=== PATIENT | female | born 1965 | race Caucasian/White ===

== ENCOUNTER → 2017-04-23 | Outpatient (CLI) | payer MEDICAID ==
[~2017-04-23] MED LIST: ALPR-475 PO; BUPR8TAB; BUTA1CAP58 PO; HYDR4TAB48 PO; IBUP-1223 PO; IBUP1TAB76 PO; LEVO125T PO; LORA-446; METH-356 PO; METH750T2 PO; OMNIPAQUE 350 MG/ML, 100ML BOTTLE ONE; PRED10TA PO
== END | disposition home or self-care (01) ==
LOC: CFH 07:54
PROVIDERS: ATTEND Internal Medicine
DX: R10.2 Pelvic and perineal pain (principal); R32 Unspecified urinary incontinence; M51.87 Other intervertebral disc disorders, lumbosacral region
CPT/HCPCS: 72193; Q9967

== ENCOUNTER 2017-09-23 11:28 | Emergency (ER) | payer MEDICAID ==
[~2017-09-23] VITALS: Ht 160 cm; Wt 118.0 kg
[~2017-09-23 11:28] MED LIST changes: -OMNIPAQUE 350 MG/ML, 100ML BOTTLE ONE
[2017-09-23] MEDS ORDERED: SODIUM CHLORIDE FLUSH 10ML SYR IVF ONE ×2 (12:00→13:00)
[2017-09-23 12:40] LABS: BASOPHILS # (AUTO) 0.02 x10^3/uL (0-0.1); BASOPHILS % (AUTO) 0 % (0-1); EOSINOPHILS # (AUTO) 0.08 x10^3/uL (0-0.4); EOSINOPHILS % (AUTO) 1 % (1-7); LYMPHOCYTES # (AUTO) 1.87 x10^3/uL (1-3.4); LYMPHOCYTES % (AUTO) 26 % (22-44); MD NO; MEAN CORPUSCULAR HEMOGLOBIN 30.3 pg (27.0-34.8); MEAN CORPUSCULAR HGB CONC 33.9 g/dL (32.4-35.8); MEAN CORPUSCULAR VOLUME 89.3 fL (80-100); MEAN PLATELET VOLUME 8.1 fL (7.4-10.4); MONOCYTES % (AUTO) 8 % (2-9); NEUTROPHILS # (AUTO) 4.64 x10^3/uL (1.8-6.8); NEUTROPHILS % (AUTO) 64 % (42-75); PLATELET COUNT 278 x10^3/uL (130-400); RED BLOOD COUNT 4.83 x10^6/uL (3.82-5.3); RED CELL DISTRIBUTION WIDTH 13.1 % (9.6-15.2)
[2017-09-23 12:51] LABS: ALANINE AMINOTRANSFERASE 37 U/L (12-78); ALBUMIN 3.4 g/dL (3.4-5.0); ANION GAP 7 mmol/L (5-15); CALCIUM 8.9 mg/dL (8.5-10.1); CHLORIDE 109 mmol/L (98-107); CREATININE 0.84 mg/dL (0.55-1.02)
[2017-09-23 12:53] LABS: ALKALINE PHOSPHATASE 86 U/L (45-117); BILIRUBIN,TOTAL 0.4 mg/dL (0.2-1.0); TOTAL PROTEIN 7.6 g/dL (6.4-8.2)
[2017-09-23] MEDS ORDERED: HYDROmorphone 1 MG/ML, 1ML IVPush PRN (13:00)
[2017-09-23] MEDS ORDERED: ONDANSETRON ODT 4 MG PO ONE (13:00)
[2017-09-23] MEDS ORDERED: HYDROmorphone 1 MG/ML, 1ML ONE (13:05)
[2017-09-23] MEDS ORDERED: ONDANSETRON ODT 4 MG ONE (13:05)
[2017-09-23] MEDS ORDERED: KETOROLAC 30 MG/1 ML ONE (13:17)
[2017-09-23] MEDS ORDERED: DIPHENHYDRAMINE 50 MG/ML, 1ML ONE (13:17)
[2017-09-23] MEDS ORDERED: DIPHENHYDRAMINE 50 MG/ML, 1ML IVPush ONE (13:30)
[2017-09-23] MEDS ORDERED: KETOROLAC 30 MG/1 ML IVPush ONE (13:30)
[2017-09-23 14:30] VITALS: BP 141/93
[2017-09-23] MEDS ORDERED: DIAZEPAM 5 MG/ML, 2ML IV ONE (14:30)
== END 2017-09-23 15:21 | disposition home or self-care (01) ==
LOC: ED 15:21
DX: G44.209 Tension-type headache, unspecified, not intractable (principal); G43.909 Migraine, unspecified, not intractable, without status migrainosus; M19.90 Unspecified osteoarthritis, unspecified site; G89.29 Other chronic pain
CPT/HCPCS: 36415; 70450; 80053; 82550; 85025; 93005; 96374; 96375; 99285; J1200; J1885; J3360; Q0162

== ENCOUNTER 2017-11-24 19:25 | Emergency (ER) | payer MEDICAID ==
[~2017-11-24] VITALS: Ht 160 cm; Wt 116.4 kg
[2017-11-24 21:36] VITALS: BP 178/100
== END 2017-11-24 21:56 | disposition home or self-care (01) ==
LOC: ED 21:50
DX: J20.9 Acute bronchitis, unspecified (principal); G43.909 Migraine, unspecified, not intractable, without status migrainosus; G89.29 Other chronic pain; E03.9 Hypothyroidism, unspecified
CPT/HCPCS: 71046; 99284

== ENCOUNTER 2018-01-16 11:51 | Inpatient (IN) | payer MEDICAID, OTHER ==
[~2018-01-16] VITALS: Ht 160 cm; Wt 111.0 kg
[2018-01-16] MEDS ORDERED: SODIUM CHLORIDE 0.9% 1,000ML IVBOLUS ONE ×2 (12:00→15:30)
[2018-01-16] MEDS ORDERED: SODIUM CHLORIDE FLUSH 10ML SYR IVF ONE (12:00)
[2018-01-16 12:22] LABS: MEAN CORPUSCULAR HEMOGLOBIN 28.6 pg (27.0-34.8); MEAN CORPUSCULAR HGB CONC 33.4 g/dL (32.4-35.8); MEAN CORPUSCULAR VOLUME 85.6 fL (80-100); MEAN PLATELET VOLUME 8.6 fL (7.4-10.4); PLATELET COUNT 239 x10^3/uL (130-400); RED BLOOD COUNT 4.97 x10^6/uL (3.82-5.3); RED CELL DISTRIBUTION WIDTH 13.2 % (9.6-15.2)
[2018-01-16] MEDS ORDERED: KETOROLAC 30 MG/1 ML ONE (12:26)
[2018-01-16] MEDS ORDERED: PROMETHAZINE 25 MG/ML, 1ML ONE (12:26)
[2018-01-16] MEDS ORDERED: PROMETHAZINE 25 MG/ML, 1ML IM ONE (12:30)
[2018-01-16] MEDS ORDERED: KETOROLAC 30 MG/1 ML IVPush ONE (12:30)
[2018-01-16 12:34] LABS: INTERNATIONAL NORMALIZED RATIO 1.16 (0.93-1.1); PROTHROMBIN TIME 11.9 Seconds (9.6-11.5)
[2018-01-16 12:38] LABS: ALANINE AMINOTRANSFERASE 22 U/L (12-78); ALBUMIN 3.2 g/dL (3.4-5.0); ANION GAP 9 mmol/L (5-15); CALCIUM 8.6 mg/dL (8.5-10.1); CHLORIDE 100 mmol/L (98-107); CREATININE 0.84 mg/dL (0.55-1.02)
[2018-01-16 12:39] LABS: BASOPHILS # (AUTO) 0.05 x10^3/uL (0-0.1); BASOPHILS % (AUTO) 0 % (0-1); EOSINOPHILS % (AUTO) 0 % (1-7); LYMPHOCYTES # (AUTO) 0.78 x10^3/uL (1-3.4); LYMPHOCYTES % (AUTO) 4 % (22-44); MD SCAN; MONOCYTES # (AUTO) 0.72 x10^3/uL (0.2-0.8); MONOCYTES % (AUTO) 3 % (2-9); NEUTROPHILS # (AUTO) 19.51 x10^3/uL (1.8-6.8); NEUTROPHILS % (AUTO) 93 % (42-75)
[2018-01-16 12:42] LABS: HCT (SEDRATE) 42.5 % (34.6-47.8)
[2018-01-16 12:45] LABS: ALKALINE PHOSPHATASE 90 U/L (45-117); BILIRUBIN,TOTAL 0.6 mg/dL (0.2-1.0); TOTAL PROTEIN 7.6 g/dL (6.4-8.2)
[2018-01-16] MEDS ORDERED: CEFTRIAXONE PMX 2GM/50ML 50 ML ONE (13:27)
[2018-01-16] MEDS ORDERED: CEFTRIAXONE 2 GM in SODIUM CHLORIDE 0.9% 50 ML IV ONE (13:30)
[2018-01-16] MEDS ORDERED: AZITHROMYCIN 500 MG in SODIUM CHLORIDE 0.9% 250 ML IV ONE (13:30)
[2018-01-16 13:57] LABS: MICROSCOPIC INDICATED
[2018-01-16 14:26] LABS: CULTURE INDICATED? NO
[2018-01-16] MEDS ORDERED: GADOBUTROL 10 MMOL/10 ML PFS ONE (14:43)
[2018-01-16] MEDS ORDERED: SODIUM CHLORIDE 0.9% 1,000 ML IV SCH (15:30)
[2018-01-16] MEDS ORDERED: NS + 20MEQ KCL 1,000 ML IV SCH (16:08)
[2018-01-16] MEDS ORDERED: DOCUSATE 100 MG CAPSULE PO PRN (16:30)
[2018-01-16] MEDS ORDERED: POTASSIUM CHLORIDE 40 MEQ in SODIUM CHLORIDE 0.9% 500 ML IV ONE (16:30)
[2018-01-16] MEDS ORDERED: POLYETHYLENE GLYCOL 17 GM PACKET PO PRN (16:30)
[2018-01-16] MEDS ORDERED: GUAIFENESIN/DM 200-20MG, 10ML UDC PO PRN (16:30)
[2018-01-16] MEDS ORDERED: hydrALAzine 20 MG/ML, 1ML IVPush PRN (16:30)
[2018-01-16] MEDS ORDERED: BISACODYL 10 MG SUPP PR PRN (16:30)
[2018-01-16] MEDS ORDERED: PROCHLORPERAZINE 5 MG/ML, 2ML IV PRN (16:30)
[2018-01-16] MEDS: CEFTRIAXONE 2 GM in SODIUM CHLORIDE 0.9% 50 ML IV SCH (16:30)
[2018-01-16] MEDS ORDERED: PANTOPRAZOLE 40 MG IV IVPush ONE (16:30)
[2018-01-16] MEDS ORDERED: OMNIPAQUE 350 MG/ML, 100ML BOTTLE ONE (16:44)
[2018-01-16] MEDS ORDERED: ALBUTEROL SULFATE 2.5 MG/3 ML ONE (17:16)
[2018-01-16 17:19] LABS: AMPHETAMINE SCREEN, URINE Positive (Negative); BARBITURATE SCREEN, URINE Negative (Negative); BENZODIAZEPINE SCREEN, URINE Positive (Negative); CANNABINOID SCREEN, URINE Negative (Negative); COCAINE SCREEN, URINE Negative (Negative); METHADONE SCREEN, URINE Negative (Negative); OPIATE SCREEN, URINE Positive (Negative)
[2018-01-16 17:25] LABS: FREE T4 (FREE THYROXINE) 1.4 ng/dL (0.76-1.46); THYROID STIMULATING HORMONE 0.174 mIU/L (0.358-3.740)
[2018-01-16] MEDS ORDERED: ALBUTEROL SULFATE 2.5 MG/3 ML NPPB ONE (17:30)
[2018-01-16 17:41] LABS: TROPONIN I < 0.015 ng/mL (0.000-0.045)
[2018-01-16] MEDS ORDERED: NALOXONE 0.4 MG/ML, 1ML ONE (17:44)
[2018-01-16] MEDS ORDERED: NALOXONE 1 MG/ML, 2ML IVPush ONE (18:00)
[2018-01-16] MEDS ORDERED: ALBUTEROL SULFATE 2.5 MG/3 ML NPPB PRN (18:00)
[2018-01-16] MEDS: ALBUTEROL SULFATE 2.5 MG/3 ML NPPB SCH ×2 (19:30→23:30)
[2018-01-16 20:00] VITALS: BP 109/71
[2018-01-16] MEDS: DOXYCYCLINE 100 MG in DEXTROSE 5% 250 ML IV SCH (20:38)
[2018-01-16] MEDS: PANTOPRAZOLE 40 MG IV IVPush SCH (20:40)
[2018-01-16 22:08] VITALS: BP 109/71
[2018-01-17 01:39] VITALS: BP 110/73
[2018-01-17] MEDS: ALBUTEROL SULFATE 2.5 MG/3 ML NPPB SCH ×3 (03:30→10:35)
[2018-01-17 04:19] LABS: MEAN CORPUSCULAR HGB CONC 33.1 g/dL (32.4-35.8); MEAN CORPUSCULAR VOLUME 87.6 fL (80-100); PLATELET COUNT 197 x10^3/uL (130-400); RED BLOOD COUNT 4.65 x10^6/uL (3.82-5.3); RED CELL DISTRIBUTION WIDTH 13.1 % (9.6-15.2)
[2018-01-17 04:19] LABS: CLOSTRIDIUM DIFFICILE ANTIGEN NEGATIVE; CLOSTRIDIUM DIFFICILE TOXIN NEGATIVE (Negative)
[2018-01-17 04:28] LABS: ALANINE AMINOTRANSFERASE 19 U/L (12-78); ALBUMIN 2.5 g/dL (3.4-5.0); ANION GAP 4 mmol/L (5-15); CALCIUM 8.1 mg/dL (8.5-10.1); CHLORIDE 115 mmol/L (98-107); CREATININE 0.67 mg/dL (0.55-1.02)
[2018-01-17 04:34] LABS: ALKALINE PHOSPHATASE 79 U/L (45-117); BILIRUBIN,TOTAL 0.4 mg/dL (0.2-1.0); CHOL/HDL RATIO 3.6; CHOLESTEROL, TOTAL 161 mg/dL (140-239); HDL CHOL % 28 % (28-40); HDL CHOLESTEROL (DIRECT) 45 mg/dL (40-60); LDL CHOLESTEROL,CALCULATED 101 mg/dL (54-169); LDL/HDL RATIO 2.2 (0.5-3.0); TOTAL PROTEIN 6.7 g/dL (6.4-8.2); TRIGLYCERIDES 75 mg/dL (50-200); VLDL CHOLESTEROL 15 mg/dL (0-25)
[2018-01-17] MEDS: NS + 20MEQ KCL 1,000 ML IV SCH ×2 (05:08→20:03)
[2018-01-17] MEDS: LEVOTHYROXINE 125 MCG TABLET PO SCH (05:09)
[2018-01-17 05:48] LABS: BASOPHILS # (AUTO) 0.01 x10^3/uL (0-0.1); BASOPHILS % (AUTO) 0 % (0-1); EOSINOPHILS % (AUTO) 0 % (1-7); LYMPHOCYTES # (AUTO) 1.23 x10^3/uL (1-3.4); LYMPHOCYTES % (AUTO) 6 % (22-44); MD SCAN; MONOCYTES # (AUTO) 0.44 x10^3/uL (0.2-0.8); MONOCYTES % (AUTO) 2 % (2-9); NEUTROPHILS # (AUTO) 17.83 x10^3/uL (1.8-6.8); NEUTROPHILS % (AUTO) 91 % (42-75)
[2018-01-17] MEDS ORDERED: POTASSIUM CHLORIDE 40 MEQ in SODIUM CHLORIDE 0.9% 500 ML IV ONE (06:00)
[2018-01-17] MEDS ORDERED: SODIUM PHOSPHATE 30 MMOL in SODIUM CHLORIDE 0.9% 500 ML IV ONE (06:00)
[2018-01-17] MEDS ORDERED: MAGNESIUM SULFATE 1 GM in SODIUM CHLORIDE 0.9% 50 ML IV ONE (06:00)
[2018-01-17 07:42] VITALS: BP 128/87
[2018-01-17] MEDS: BACLOFEN 10 MG TABLET PO PRN ×2 (08:28→16:19)
[2018-01-17] MEDS: PANTOPRAZOLE 40 MG IV IVPush SCH ×2 (09:18→20:04)
[2018-01-17] MEDS: DOXYCYCLINE 100 MG in DEXTROSE 5% 250 ML IV SCH ×2 (09:25→20:04)
[2018-01-17] MEDS: METHADONE 5 MG TABLET PO SCH ×2 (10:58→17:53)
[2018-01-17 13:16] VITALS: BP 149/96
[2018-01-17] MEDS ORDERED: ALBUTEROL SULFATE 2.5 MG/3 ML NPPB PRN (15:30)
[2018-01-17] MEDS: CEFTRIAXONE 2 GM in SODIUM CHLORIDE 0.9% 50 ML IV SCH (16:20)
[2018-01-17 20:00] VITALS: BP 145/92
[2018-01-17] MEDS: ACETAMINOPHEN 325 MG TABLET PO PRN (20:03)
[2018-01-17] MEDS ORDERED: OXYC-307 PO (20:12)
[2018-01-17] MEDS ORDERED: DIAZ2TAB3 PO (20:12)
[2018-01-17] MEDS ORDERED: MELO7.5T31 PO (20:12)
[2018-01-18 02:10] VITALS: BP 158/84
[2018-01-18] MEDS: METHADONE 5 MG TABLET PO SCH ×3 (02:12→17:49)
[2018-01-18] MEDS: ACETAMINOPHEN 325 MG TABLET PO PRN ×2 (04:13→14:37)
[2018-01-18] MEDS: LEVOTHYROXINE 125 MCG TABLET PO SCH (04:13)
[2018-01-18] MEDS: NS + 20MEQ KCL 1,000 ML IV SCH ×2 (05:45→15:54)
[2018-01-18 06:08] LABS: BASOPHILS % (AUTO) 0 % (0-1); EOSINOPHILS # (AUTO) 0.01 x10^3/uL (0-0.4); EOSINOPHILS % (AUTO) 0 % (1-7); LYMPHOCYTES # (AUTO) 1.09 x10^3/uL (1-3.4); LYMPHOCYTES % (AUTO) 8 % (22-44); MD NO; MEAN CORPUSCULAR HEMOGLOBIN 28.5 pg (27.0-34.8); MEAN CORPUSCULAR HGB CONC 32.5 g/dL (32.4-35.8); MEAN CORPUSCULAR VOLUME 87.8 fL (80-100); MEAN PLATELET VOLUME 9.1 fL (7.4-10.4); MONOCYTES % (AUTO) 4 % (2-9); NEUTROPHILS # (AUTO) 12.43 x10^3/uL (1.8-6.8); NEUTROPHILS % (AUTO) 89 % (42-75); PLATELET COUNT 219 x10^3/uL (130-400); RED BLOOD COUNT 4.45 x10^6/uL (3.82-5.3); RED CELL DISTRIBUTION WIDTH 13.2 % (9.6-15.2)
[2018-01-18 06:14] LABS: ALANINE AMINOTRANSFERASE 18 U/L (12-78); ALBUMIN 2.5 g/dL (3.4-5.0); ANION GAP 8 mmol/L (5-15); CALCIUM 8.4 mg/dL (8.5-10.1); CHLORIDE 113 mmol/L (98-107); CREATININE 0.53 mg/dL (0.55-1.02)
[2018-01-18 06:17] LABS: ALKALINE PHOSPHATASE 78 U/L (45-117); BILIRUBIN,TOTAL 0.3 mg/dL (0.2-1.0); TOTAL PROTEIN 6.7 g/dL (6.4-8.2)
[2018-01-18 06:34] VITALS: BP 151/93
[2018-01-18] MEDS ORDERED: POTASSIUM CHLORIDE 20 MEQ TAB.ER.PRT PO ONE (07:00)
[2018-01-18] MEDS: PIPERACILLIN/TAZO/PMX 3.375GM 50 ML IV SCH ×3 (08:59→20:01)
[2018-01-18] MEDS: PANTOPRAZOLE 40 MG IV IVPush SCH (08:59)
[2018-01-18] MEDS ORDERED: CARI350T PO (09:42)
[2018-01-18] MEDS ORDERED: LORA1TAB PO (09:48)
[2018-01-18] MEDS: LOPERAMIDE 1 MG/5 ML, 10ML UDC PO PRN ×3 (10:18→20:01)
[2018-01-18 12:38] VITALS: BP 142/94
[2018-01-18] MEDS: PANTOPROZOLE 40MG TABLET PO SCH (17:49)
[2018-01-18 20:00] VITALS: BP 128/84
[2018-01-19 02:00] VITALS: BP 137/88
[2018-01-19] MEDS: NS + 20MEQ KCL 1,000 ML IV SCH ×2 (02:20→20:01)
[2018-01-19] MEDS: PIPERACILLIN/TAZO/PMX 3.375GM 50 ML IV SCH ×4 (02:20→21:00)
[2018-01-19] MEDS: METHADONE 5 MG TABLET PO SCH ×3 (02:20→17:01)
[2018-01-19] MEDS: LOPERAMIDE 1 MG/5 ML, 10ML UDC PO PRN (04:41)
[2018-01-19] MEDS: LEVOTHYROXINE 125 MCG TABLET PO SCH (04:41)
[2018-01-19 05:56] LABS: ALBUMIN 2.5 g/dL (3.4-5.0); ANION GAP 7 mmol/L (5-15); CALCIUM 8.5 mg/dL (8.5-10.1); CHLORIDE 110 mmol/L (98-107)
[2018-01-19 05:58] LABS: CREATININE 0.68 mg/dL (0.55-1.02)
[2018-01-19] MEDS ORDERED: POTASSIUM CHLORIDE 20 MEQ TAB.ER.PRT PO ONE (06:30)
[2018-01-19 07:08] VITALS: BP 138/92
[2018-01-19 07:21] LABS: BASOPHILS # (AUTO) 0.03 x10^3/uL (0-0.1); BASOPHILS % (AUTO) 0 % (0-1); EOSINOPHILS # (AUTO) 0.14 x10^3/uL (0-0.4); EOSINOPHILS % (AUTO) 2 % (1-7); LYMPHOCYTES # (AUTO) 1.68 x10^3/uL (1-3.4); LYMPHOCYTES % (AUTO) 19 % (22-44); MD NO; MEAN CORPUSCULAR HEMOGLOBIN 28.5 pg (27.0-34.8); MEAN CORPUSCULAR HGB CONC 32.9 g/dL (32.4-35.8); MEAN CORPUSCULAR VOLUME 86.7 fL (80-100); MEAN PLATELET VOLUME 9.3 fL (7.4-10.4); MONOCYTES # (AUTO) 0.44 x10^3/uL (0.2-0.8); MONOCYTES % (AUTO) 5 % (2-9); NEUTROPHILS # (AUTO) 6.58 x10^3/uL (1.8-6.8); NEUTROPHILS % (AUTO) 74 % (42-75); PLATELET COUNT 272 x10^3/uL (130-400); RED BLOOD COUNT 4.28 x10^6/uL (3.82-5.3); RED CELL DISTRIBUTION WIDTH 13.4 % (9.6-15.2)
[2018-01-19] MEDS: PANTOPROZOLE 40MG TABLET PO SCH ×2 (08:56→17:01)
[2018-01-19 12:22] VITALS: BP 134/86
[2018-01-19] MEDS: ACETAMINOPHEN 325 MG TABLET PO PRN (12:53)
[2018-01-19] MEDS ORDERED: LOPERAMIDE 2 MG CAPSULE PO PRN (19:30)
[2018-01-19 20:00] VITALS: BP 122/76
[2018-01-20] MEDS: METHADONE 5 MG TABLET PO SCH ×3 (01:51→16:25)
[2018-01-20] MEDS: ACETAMINOPHEN 325 MG TABLET PO PRN ×2 (01:54→16:24)
[2018-01-20 01:56] VITALS: BP 145/80
[2018-01-20] MEDS: PIPERACILLIN/TAZO/PMX 3.375GM 50 ML IV SCH ×2 (03:18→08:45)
[2018-01-20 05:00] LABS: ALBUMIN 2.4 g/dL (3.4-5.0); ANION GAP 7 mmol/L (5-15); CALCIUM 8.3 mg/dL (8.5-10.1); CHLORIDE 109 mmol/L (98-107); CREATININE 0.68 mg/dL (0.55-1.02)
[2018-01-20] MEDS: LEVOTHYROXINE 125 MCG TABLET PO SCH (05:14)
[2018-01-20] MEDS: NS + 20MEQ KCL 1,000 ML IV SCH (05:14)
[2018-01-20 08:16] VITALS: BP 136/91
[2018-01-20] MEDS: HEPARIN 5,000 UNITS/ML, 1ML SQ SCH ×3 (08:45→23:00)
[2018-01-20] MEDS: PANTOPROZOLE 40MG TABLET PO SCH ×2 (08:45→16:24)
[2018-01-20 13:19] VITALS: BP 140/94
[2018-01-20] MEDS: AMPICILLIN/SULBACTAM 3 GM in SODIUM CHLORIDE 0.9% 100 ML IV SCH ×2 (14:02→20:47)
[2018-01-20 19:32] VITALS: BP 120/71
[2018-01-21 01:57] VITALS: BP 133/84
[2018-01-21] MEDS: AMPICILLIN/SULBACTAM 3 GM in SODIUM CHLORIDE 0.9% 100 ML IV SCH ×2 (02:03→07:47)
[2018-01-21] MEDS: METHADONE 5 MG TABLET PO SCH ×2 (02:03→09:48)
[2018-01-21 06:11] LABS: BASOPHILS # (AUTO) 0.07 x10^3/uL (0-0.1); BASOPHILS % (AUTO) 1 % (0-1); EOSINOPHILS # (AUTO) 0.29 x10^3/uL (0-0.4); EOSINOPHILS % (AUTO) 3 % (1-7); LYMPHOCYTES # (AUTO) 2.05 x10^3/uL (1-3.4); LYMPHOCYTES % (AUTO) 22 % (22-44); MD NO; MEAN CORPUSCULAR HEMOGLOBIN 28.9 pg (27.0-34.8); MEAN CORPUSCULAR VOLUME 87.6 fL (80-100); MONOCYTES # (AUTO) 0.45 x10^3/uL (0.2-0.8); MONOCYTES % (AUTO) 5 % (2-9); NEUTROPHILS % (AUTO) 69 % (42-75); PLATELET COUNT 296 x10^3/uL (130-400); RED BLOOD COUNT 4.99 x10^6/uL (3.82-5.3); RED CELL DISTRIBUTION WIDTH 12.8 % (9.6-15.2)
[2018-01-21 06:16] LABS: CHLORIDE 108 mmol/L (98-107)
[2018-01-21 06:23] LABS: ALANINE AMINOTRANSFERASE 50 U/L (12-78); ALBUMIN 2.7 g/dL (3.4-5.0); ALKALINE PHOSPHATASE 77 U/L (45-117); ANION GAP 6 mmol/L (5-15); BILIRUBIN,TOTAL 0.4 mg/dL (0.2-1.0); CALCIUM 8.9 mg/dL (8.5-10.1); CREATININE 0.76 mg/dL (0.55-1.02)
[2018-01-21] MEDS: LEVOTHYROXINE 125 MCG TABLET PO SCH (06:25)
[2018-01-21 06:32] VITALS: BP 133/85
[2018-01-21] MEDS: PANTOPROZOLE 40MG TABLET PO SCH (07:47)
[2018-01-21] MEDS: HEPARIN 5,000 UNITS/ML, 1ML SQ SCH (07:47)
[2018-01-21] MEDS: BACLOFEN 10 MG TABLET PO PRN (09:48)
[2018-01-21] MEDS: ACETAMINOPHEN 325 MG TABLET PO PRN (09:48)
[2018-01-21] MEDS ORDERED: CEFD300C37 PO (11:21)
[2018-01-21] MEDS ORDERED: DOXY100T10 PO (11:21)
== END 2018-01-21 13:47 | disposition home or self-care (01) | DRG 871 ==
LOC: ED 12:44 → EDIP 14:36 → 4WST 19:06
PROVIDERS: ADMIT Hospitalist; ATTEND Hospitalist
DX: A41.9 Sepsis, unspecified organism (principal); J18.9 Pneumonia, unspecified organism; J96.01 Acute respiratory failure with hypoxia; E87.1 Hypo-osmolality and hyponatremia; F11.20 Opioid dependence, uncomplicated; E03.9 Hypothyroidism, unspecified; E87.6 Hypokalemia; E88.09 Other disorders of plasma-protein metabolism, not elsewhere classified; F15.90 Other stimulant use, unspecified, uncomplicated; G89.29 Other chronic pain; R32 Unspecified urinary incontinence; Z80.42 Family history of malignant neoplasm of prostate; Z88.5 Allergy status to narcotic agent
CPT/HCPCS: 36415; 36600; 84145; 99291; J7613; 71045; 71275; 72158; 80048; 80053; 80061; 80307; 81001; 82040; 82140; 82803; 83605; 83735; 84100; 84439; 84443; 84484; 85025; 85610; 85651; 85730; 86140; 87040; 87070; 87205; 87324; 89055; 93005; 94640; 96361; 96365; 96367; 96372; 96375; A9585; G0378; J0295; J0456; J0696; J1644; J1885; J2543; J2550; J3475; J3480; J7060; Q9967; C9113; J2310; J7030; J7040; J7050

== ENCOUNTER 2018-02-16 19:32 | Emergency (ER) | payer MEDICAID ==
[~2018-02-16] VITALS: Ht 160 cm; Wt 112.9 kg
[~2018-02-16 19:32] MED LIST changes: +CARI350T PO; +CEFD300C37 PO; +DIAZ2TAB3 PO; +DOXY100T10 PO; +LORA1TAB PO; +MELO7.5T31 PO; +OXYC-307 PO
[2018-02-16] MEDS ORDERED: ASPIRIN 81 MG TABLET CHEW PO ONE (20:00)
[2018-02-16] MEDS ORDERED: DIPH,PERTUSS(ACELL),TET VAC/PF 0.5 ML IM-VACC ONE ×2 (20:00→21:38)
[2018-02-16 20:23] LABS: BASOPHILS # (AUTO) 0.01 x10^3/uL (0-0.1); BASOPHILS % (AUTO) 0 % (0-1); EOSINOPHILS # (AUTO) 0.09 x10^3/uL (0-0.4); EOSINOPHILS % (AUTO) 2 % (1-7); LYMPHOCYTES # (AUTO) 1.26 x10^3/uL (1-3.4); LYMPHOCYTES % (AUTO) 25 % (22-44); MD NO; MEAN CORPUSCULAR HEMOGLOBIN 28.5 pg (27.0-34.8); MEAN CORPUSCULAR HGB CONC 32.8 g/dL (32.4-35.8); MEAN PLATELET VOLUME 8.2 fL (7.4-10.4); MONOCYTES # (AUTO) 0.41 x10^3/uL (0.2-0.8); MONOCYTES % (AUTO) 8 % (2-9); NEUTROPHILS # (AUTO) 3.25 x10^3/uL (1.8-6.8); NEUTROPHILS % (AUTO) 65 % (42-75); PLATELET COUNT 265 x10^3/uL (130-400); RED BLOOD COUNT 4.48 x10^6/uL (3.82-5.3); RED CELL DISTRIBUTION WIDTH 14.6 % (9.6-15.2)
[2018-02-16 20:32] LABS: ALANINE AMINOTRANSFERASE 23 U/L (12-78); ALBUMIN 3.2 g/dL (3.4-5.0); ANION GAP 7 mmol/L (5-15); CALCIUM 8.6 mg/dL (8.5-10.1); CHLORIDE 107 mmol/L (98-107)
[2018-02-16 20:36] LABS: ALKALINE PHOSPHATASE 68 U/L (45-117); BILIRUBIN,TOTAL 0.3 mg/dL (0.2-1.0); TOTAL PROTEIN 7.3 g/dL (6.4-8.2); TROPONIN I < 0.015 ng/mL (0.000-0.045)
[2018-02-16] MEDS ORDERED: ASPIRIN 81 MG TABLET CHEW ONE (21:38)
[2018-02-16 23:10] VITALS: BP 156/96
[2018-02-16] MEDS ORDERED: IBUPROFEN 200 MG TABLET ONE (23:50)
[2018-02-17] MEDS ORDERED: IBUPROFEN 200 MG TABLET PO ONE
== END 2018-02-17 01:40 | disposition home or self-care (01) ==
LOC: ED 23:32
DX: G89.11 Acute pain due to trauma (principal); M25.532 Pain in left wrist; B34.9 Viral infection, unspecified; M19.90 Unspecified osteoarthritis, unspecified site; I10 Essential (primary) hypertension; E03.9 Hypothyroidism, unspecified; G89.29 Other chronic pain; G43.909 Migraine, unspecified, not intractable, without status migrainosus; W01.0XXA Fall on same level from slipping, tripping and stumbling without subsequent striking against object, initial encounter; Y93.89 Activity, other specified; Y92.89 Other specified places as the place of occurrence of the external cause; Y99.8 Other external cause status
CPT/HCPCS: 36415; 71045; 80053; 83880; 84484; 85025; 90471; 90715; 99285

== ENCOUNTER → 2018-10-08 | Outpatient (CLI) | payer MEDICAID ==
[~2018-10-08] MED LIST changes: -METH-356 PO; +METH10TA2 PO
== END | disposition home or self-care (01) ==
LOC: CVU 13:53
PROVIDERS: ATTEND Internal Medicine
DX: I83.813 Varicose veins of bilateral lower extremities with pain (principal); I10 Essential (primary) hypertension; E03.9 Hypothyroidism, unspecified; G89.4 Chronic pain syndrome; F33.1 Major depressive disorder, recurrent, moderate
CPT/HCPCS: 93970

== ENCOUNTER 2018-11-09 00:25 | Emergency (ER) | payer MEDICAID ==
[~2018-11-09] VITALS: Ht 160 cm; Wt 112.3 kg
[2018-11-09 00:29] VITALS: BP 125/85
--- NOTE | 2018-11-09 01:21 | NUR ---
GUS SHAH WAS IN TO EVAL PT. AND DISCUSS POC. PT. C/O RASH TO FACE STARTING AFTER USING A NEW FACIAL LOTION. ALSO C/O "I GOT GLASS IN MY LEFT FOOT, IT MIGHT BE OUT BECAUSE I WAS DIGGING IN THERE BUT I JUST WANT TO MAKE SURE." ALSO C/O RIGHT ANKLE PAIN AFTER "ROLLING MY ANKLE THE OTHER DAY".
--- NOTE | 2018-11-09 01:55 | NUR ---
CHART UP FOR RECHECK BY ERP.
== END 2018-11-09 02:26 | disposition home or self-care (01) ==
LOC: ED 01:20
DX: S90.812A Abrasion, left foot, initial encounter (principal); M25.571 Pain in right ankle and joints of right foot; I10 Essential (primary) hypertension; W22.8XXA Striking against or struck by other objects, initial encounter; Y93.89 Activity, other specified; Y92.89 Other specified places as the place of occurrence of the external cause; Y99.8 Other external cause status
CPT/HCPCS: 99283

== ENCOUNTER 2020-06-18 18:00 | Emergency (ER) | payer MEDICAID ==
[~2020-06-18] VITALS: Ht 160 cm; Wt 125.0 kg
[~2020-06-18 18:00] MED LIST changes: -ALPR-475 PO; +ALPR0.5T7 PO; +ASPI-963 PO; +ASPI500T13 PO; -DOXY100T10 PO; +DOXY100T23 PO; +LEVO150T PO; +LISI-167 PO; +METH-640 PO; -METH750T2 PO; -OXYC-307 PO; +OXYC-380 PO
[2020-06-18] MEDS ORDERED: TRIA50CA PO (18:21)
--- NOTE | 2020-06-18 18:31 | NUR ---
PT BIB EMS FOR R UPPER QUAD AB PAIN RADIATING TO CHEST AND BACK. ONSET OF SYMPTOMS WAS WENESDAY. PT DESCRIBES PAIN 'SHARP SPASMS'. PT ON CONTINIOUS PULSE OX, BP AND OUTPATIENT CODING SPECIALIST. PT HAVING INTERMITTENT SPASMS RATED A 8/10. PT REPOSITIONED FOR COMFORT.
--- NOTE | 2020-06-18 19:21 | NUR ---
Pt up to BSC, tolerated well. Back to bed, safe, on monitor, will monitor. Pt c/o abd spasms.
[2020-06-18] MEDS ORDERED: SODIUM CHLORIDE FLUSH 10ML SYR IVF ONE (19:30)
[2020-06-18] MEDS ORDERED: SODIUM CHLORIDE 0.9% 1,000 ML IV ONE (19:30)
[2020-06-18] MEDS ORDERED: DICYCLOMINE 10 MG/ML, 2ML IM ONE (20:00)
[2020-06-18] MEDS ORDERED: ONDANSETRON 2MG/ML, 2ML IVPush ONE (20:00)
[2020-06-18] MEDS ORDERED: MORPHINE SULFATE 4 MG/ML, 1ML IVPush PRN (20:00)
[2020-06-18 20:20] LABS: BASOPHILS % (AUTO) 1 % (0-1); EOSINOPHILS % (AUTO) 1 % (1-7); LYMPHOCYTES % (AUTO) 16 % (22-44); MEAN CORPUSCULAR HEMOGLOBIN 30.3 pg (27.0-34.8); MEAN CORPUSCULAR HGB CONC 33.6 g/dL (32.4-35.8); MEAN PLATELET VOLUME 7.5 fL (7.4-10.4); MONOCYTES % (AUTO) 6 % (2-9); NEUTROPHILS % (AUTO) 76 % (42-75); PLATELET COUNT 241 x10^3/uL (130-400); RED BLOOD COUNT 4.96 x10^6/uL (3.82-5.3); RED CELL DISTRIBUTION WIDTH 16.7 % (9.6-15.2)
[2020-06-18 20:21] LABS: MD NO
[2020-06-18 20:32] LABS: ALANINE AMINOTRANSFERASE 93 U/L (12-78); ALBUMIN 3.8 g/dL (3.4-5.0); ANION GAP 8 mmol/L (5-15); CALCIUM 9.3 mg/dL (8.5-10.1); CHLORIDE 103 mmol/L (98-107); CREATININE 1.12 mg/dL (0.55-1.02)
[2020-06-18] MEDS ORDERED: DICYCLOMINE 10 MG/ML, 2ML ONE (20:34)
[2020-06-18] MEDS ORDERED: MORPHINE SULFATE 4 MG/ML, 1ML ONE (20:34)
[2020-06-18] MEDS ORDERED: ONDANSETRON 2MG/ML, 2ML ONE (20:34)
[2020-06-18 20:37] LABS: ALKALINE PHOSPHATASE 110 U/L (45-117); BILIRUBIN,TOTAL 0.8 mg/dL (0.2-1.0); TOTAL PROTEIN 8.2 g/dL (6.4-8.2); TROPONIN I < 0.015 ng/mL (0.000-0.045)
--- NOTE | 2020-06-18 20:51 | NUR ---
Pt medicated per orders, pt with hive like bump right above IV site after medications. VENEER STOCK LAYER Christen aware. Pt with no SOB or CP or other symptoms. Pt with stable VS. Will monitor. Pt denies any needs at this time. Call light in reach. Pt aware of the need for UA.
[2020-06-18 21:22] LABS: MICROSCOPIC NOT IND
--- NOTE | 2020-06-18 22:27 | NUR ---
US in room, pt denies any needs at this time.
[2020-06-18 23:24] VITALS: BP 108/68
--- NOTE | 2020-06-18 23:26 | NUR ---
Pt IV dc'd intact. Pt DC'd with written and verabl instructions, rx reviewed and pt states understanding to both. Pt with stable VS. Pt ambulatory out of ED and home with a taxi voucher.
== END 2020-06-18 23:28 | disposition home or self-care (01) ==
LOC: ED 20:33
DX: R10.84 Generalized abdominal pain (principal); R07.89 Other chest pain; R06.02 Shortness of breath; M79.89 Other specified soft tissue disorders; R11.0 Nausea; R00.0 Tachycardia, unspecified; G89.29 Other chronic pain; G43.909 Migraine, unspecified, not intractable, without status migrainosus; E03.9 Hypothyroidism, unspecified; Z90.89 Acquired absence of other organs
CPT/HCPCS: 36415; 71045; 76700; 80053; 81003; 83690; 84484; 85025; 93005; 96361; 96372; 96374; 96375; 99285; J0500; J2270; J2405; J7030; 96376

== ENCOUNTER 2020-07-20 12:12 | Outpatient (CLI) | payer MEDICAID ==
[~2020-07-20 12:12] MED LIST changes: +TRIA50CA PO
== END 2020-07-20 23:59 | disposition home or self-care (01) ==
LOC: RAD 12:12
PROVIDERS: ATTEND Orthopaedic Surgery
DX: M19.071 Primary osteoarthritis, right ankle and foot (principal); M21.6X1 Other acquired deformities of right foot